=== PATIENT | female | born 1995 | race Caucasian/White ===

== ENCOUNTER → 2016-10-23 | Outpatient (CLI) | payer OTHER ==
[2016-10-23 10:13] LABS: HEMATOCRIT 34.9 % (37-47); MEAN CELL VOLUME 63.6 fL (80-100); MEAN CORPUSCULAR HEMOGLOBIN 19.9 pg (25-34); MEAN CORPUSCULAR HGB CONC 31.2 g/dl (32-36); MEAN PLATELET VOLUME 9.8 fL (7.4-10.4); PLATELET COUNT 461 K/uL (130-400); RED BLOOD COUNT 5.49 M/uL (4.2-5.4); WHITE BLOOD COUNT 11.09 K/uL (4.8-10.8)
[2016-10-23 10:52] LABS: CALCULATED INSULIN SENSITIVITY 0.315; GLUCOSE LOG 1.9823; GLUCOSE,FASTING 96 mg/dl; INSULIN FASTING 15.5 mU/L (3-25); INSULIN LOG 1.1903; PROLACTIN 25.97 ng/mL; THYROID STIMULATING HORMONE 2.17 uIu/ml (0.300-4.500)
[2016-10-23 11:02] LABS: RUBELLA SCREEN IgG (AT CCH) IMMUNE (IMMUNE)
[2016-10-26 15:42] LABS: HCT 35.7 % (35.0-45.0); HEMOGLOBIN A2 5.7 % (1.8-3.5); HEMOGLOBIN F 0.6 % (<2.0); HGB 10.9 g/dL (11.7-15.5); MCH 20.2 pg (27.0-33.0); MCV 66.2 FL (80.0-100.0); RBC 5.39 Mill/uL (3.80-5.10); RDW 17.5 % (11.0-15.0); TESTOSTERONE,TOTAL 17 ng/dL (2-45)
== END | disposition home or self-care (01) ==
LOC: C.LAB 08:51
PROVIDERS: ATTEND Obstetrics & Gynecology
DX: D56.3 Thalassemia minor (principal); Z31.41 Encounter for fertility testing

== ENCOUNTER → 2016-11-19 | Outpatient (CLI) | payer OTHER ==
[2016-11-19 12:36] LABS: BLOOD UREA NITROGEN 11 mg/dl (7-18); BUN/CREATININE RATIO 14.7 (10-20); CALCIUM 8.9 mg/dl (8.5-10.1); CARBON DIOXIDE 25 mmol/L (21-32); CHLORIDE 105 mmol/L (98-107); CHOLESTEROL 114 mg/dl (0-200); CREATININE 0.74 mg/dl (0.60-1.20); GLUCOSE 92 mg/dl (70-99); SODIUM 138 mmol/L (136-145)
[2016-11-19 12:39] LABS: CHOLESTEROL/HDL RATIO 2.1; HDL CHOLESTEROL 54 mg/dl; LDL CHOLESTEROL CALCULATED 55 mg/dl; TRIGLYCERIDES 24 mg/dl (0-150); VERY LOW DENSITY LIPOPROT CALC 5 mg/dl
== END | disposition home or self-care (01) ==
LOC: C.LABBC 10:35
PROVIDERS: ATTEND Nurse Practitioner
DX: Z13.220 Encounter for screening for lipoid disorders (principal); Z13.1 Encounter for screening for diabetes mellitus

== ENCOUNTER → 2016-12-04 | Outpatient (CLI) | payer OTHER | END | disposition home or self-care (01) | LOC: C.LAB1850 10:21 | PROVIDERS: ATTEND Obstetrics & Gynecology | DX: O09.00 Supervision of pregnancy with history of infertility, unspecified trimester (principal) ==

== ENCOUNTER → 2016-12-07 | Outpatient (CLI) | payer OTHER | END | disposition home or self-care (01) | LOC: C.LAB 05:01 | PROVIDERS: ATTEND Obstetrics & Gynecology | DX: O20.0 Threatened abortion (principal) ==

== ENCOUNTER → 2016-12-14 | Outpatient (CLI) | payer OTHER | END | disposition home or self-care (01) | LOC: C.LAB 11:27 | PROVIDERS: ATTEND Obstetrics & Gynecology | DX: O02.1 Missed abortion (principal) ==

== ENCOUNTER → 2017-02-19 | Outpatient (CLI) | payer OTHER | END | disposition home or self-care (01) | LOC: C.LAB 10:41 | PROVIDERS: ATTEND Obstetrics & Gynecology | DX: O20.0 Threatened abortion (principal); Z3A.00 Weeks of gestation of pregnancy not specified ==

== ENCOUNTER → 2017-02-21 | Outpatient (CLI) | payer OTHER | END | disposition home or self-care (01) | LOC: C.LAB 23:55 | PROVIDERS: ATTEND Obstetrics & Gynecology | DX: O20.0 Threatened abortion (principal); Z3A.00 Weeks of gestation of pregnancy not specified ==

== ENCOUNTER → 2017-02-25 | Outpatient (CLI) | payer OTHER | END | disposition home or self-care (01) | LOC: C.LAB 23:58 | PROVIDERS: ATTEND Obstetrics & Gynecology | DX: O20.0 Threatened abortion (principal) ==

== ENCOUNTER → 2017-02-28 | Outpatient (CLI) | payer OTHER | END | disposition home or self-care (01) | LOC: C.LAB 10:04 | PROVIDERS: ATTEND Obstetrics & Gynecology | DX: O20.0 Threatened abortion (principal) ==

== ENCOUNTER → 2017-03-15 | Outpatient (CLI) | payer OTHER ==
[2017-03-15 16:07] LABS: URINE APPEARANCE CLEAR (CLEAR); URINE BILIRUBIN NEG (NEG); URINE COLOR YELLOW; URINE EPITHELIAL CELL AUTO >30 /lpf (0-5); URINE NITRITE NEG (NEG); URINE SPECIFIC GRAVITY 1.021 (1.000-1.030); UROBILINOGEN NEG (NEG)
[2017-03-15 16:10] LABS: MANUAL MICROSCOPIC REQUIRED? NO; REVIEW REQ? YES
[2017-03-15 16:23] LABS: URINE MUCUS PRESENT (NONE PRSENT)
== END | disposition home or self-care (01) ==
LOC: C.LABSPEC 15:13
PROVIDERS: ATTEND Obstetrics & Gynecology
DX: O09.00 Supervision of pregnancy with history of infertility, unspecified trimester (principal); Z3A.00 Weeks of gestation of pregnancy not specified

== ENCOUNTER → 2017-03-27 | Outpatient (CLI) | payer OTHER ==
[~2017-03-27] MED LIST: FERR1TAB23; PRENTAB26 PO
[2017-03-27 10:07] LABS: BASO % 0.2 %; BASO ABS # 0.03 K/uL (0-0.2); EOS % 1.1 %; EOS ABS # 0.16 K/uL (0-0.5); HEMATOCRIT 32.9 % (37-47); HEMOGLOBIN 10.6 g/dL (12.0-16.0); IG# 0.04 K/uL (0.00-0.02); LYMPH % 15.1 %; LYMPH ABS # 2.17 K/uL (1.2-3.4); MEAN CELL VOLUME 63.1 fL (80-100); MEAN CORPUSCULAR HEMOGLOBIN 20.3 pg (25-34); MEAN CORPUSCULAR HGB CONC 32.2 g/dl (32-36); MEAN PLATELET VOLUME 10.7 fL (7.4-10.4); MONO ABS # 0.86 K/uL (0.11-0.59); NEUT % 77.3 %; NEUT ABS # 11.07 K/uL (1.4-6.5); PLATELET COUNT 430 K/uL (130-400); RED CELL DISTRIBUTION WIDTH CV 17.2 % (11.5-14.5); RED CELL DISTRIBUTION WIDTH SD 38.8 fL (36.4-46.3); WHITE BLOOD COUNT 14.33 K/uL (4.8-10.8)
== END | disposition home or self-care (01) ==
LOC: C.LAB1850 09:18
PROVIDERS: ATTEND Obstetrics & Gynecology
DX: Z34.91 Encounter for supervision of normal pregnancy, unspecified, first trimester (principal)

== ENCOUNTER → 2017-04-16 | Outpatient (CLI) | payer OTHER | END | disposition home or self-care (01) | LOC: C.LABSPEC 14:14 | PROVIDERS: ATTEND Obstetrics & Gynecology | DX: Z34.91 Encounter for supervision of normal pregnancy, unspecified, first trimester (principal) ==

== ENCOUNTER → 2017-05-09 | Outpatient (CLI) | payer OTHER | END | disposition home or self-care (01) | LOC: C.LAB1850 09:41 | PROVIDERS: ATTEND Obstetrics & Gynecology | DX: Z34.92 Encounter for supervision of normal pregnancy, unspecified, second trimester (principal) ==

== ENCOUNTER → 2017-05-20 | Outpatient (CLI) | payer OTHER | END | disposition home or self-care (01) | LOC: C.LAB1850 08:04 | PROVIDERS: ATTEND Obstetrics & Gynecology | DX: O28.1 Abnormal biochemical finding on antenatal screening of mother (principal) ==

== ENCOUNTER → 2017-07-27 | Outpatient (CLI) | payer OTHER | END | disposition home or self-care (01) | LOC: C.LAB1850 08:39 | PROVIDERS: ATTEND Obstetrics & Gynecology | DX: O28.1 Abnormal biochemical finding on antenatal screening of mother (principal) ==

== ENCOUNTER → 2017-08-01 | Outpatient (CLI) | payer OTHER ==
[2017-08-01 16:52] LABS: HEMATOCRIT 30.8 % (37-47); HEMOGLOBIN 9.8 g/dL (12.0-16.0); MEAN CELL VOLUME 66.1 fL (80-100); MEAN CORPUSCULAR HGB CONC 31.8 g/dl (32-36); PLATELET COUNT 346 K/uL (130-400); RED CELL DISTRIBUTION WIDTH CV 16.6 % (11.5-14.5); RED CELL DISTRIBUTION WIDTH SD 39.4 fL (36.4-46.3); WHITE BLOOD COUNT 15.02 K/uL (4.8-10.8)
== END | disposition home or self-care (01) ==
LOC: C.LAB1850 15:36
PROVIDERS: ATTEND Obstetrics & Gynecology
DX: O09.02 Supervision of pregnancy with history of infertility, second trimester (principal); D56.3 Thalassemia minor

== ENCOUNTER 2019-08-07 07:05 | Inpatient (IN) ==
[2019-08-07] MEDS ORDERED: PENICILLIN G POTASSIUM 3 MU in DEXTROSE 5% 100 ML IV PRN (08:18)
[2019-08-07] MEDS ORDERED: OXYTOCIN 30 UNITS/500 ML BAG IV PRN ×3 (08:18→13:27)
[2019-08-07] MEDS: LACTATED RINGER'S 1,000 ML IV PRN ×2 (08:20→11:46)
[2019-08-07] MEDS ORDERED: PENICILLIN G POTASSIUM 6 MU in DEXTROSE 5% 250 ML IV STA (08:21)
--- NOTE | 2019-08-07 08:23 | History & Physical Report ---
Date of Service August 07, 2019 Assessment & Plan (1) : Admit to L&D for spontaneous labor. PCN for GBS. History of Present Illness Chief Complaint: labor Primary Care Provider: NO PCP 24yo @ 38 6/7, contractions all night. complicated by: Prior delivery with mild shoulder dystocia, plan 39wk induction if gets that far, scheduled for 08/10 GBS POS Obesity complicating - growth scan at 32 weeks GA, done at 36 wks aga efw 82% Beta thalassemia trait Pap ASCUS, HPV neg f/u 1 year Allergies Allergy/AdvReac Type Severity Reaction Status Date / Time No Known Drug Allergies Allergy Verified 08/05/19 10:01 Home Medications Home Medications Medication Instructions Recorded Confirmed Type 21-iron fu-folic acid PO 12/24/18 08/05/19 History ferrous sulfate PO 06/23/19 08/05/19 History Patient History Medical History Miscarriage Varicella vaccine Surgical History S/P dilatation and curettage Family History Sister Beta thalassemia trait Father Beta thalassemia trait Hypertension Brother Beta thalassemia trait Grandfather (Paternal) Beta thalassemia trait Mother Diabetes Social History Preferred Language: Swazi Communication Ability: Effective Beliefs That Will Affect Care: None marital status: marital status details: Beni Stevens (28) [phone] Current Living Situation: Family Current Living Situation Comment: 2 dogs current occupational status: employed 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 [employer] Other Information That Helps Us Care for You: No Feels Safe at Home: Yes Safety Concerns: Feels Safe At This Time Smoking Status: Never smoker Hx Alcohol Use: No Hx Substance Use: No Review of Systems All systems reviewed & are unremarkable except as noted in HPI & below Physical Exam Physical Exam: FHT Cat 1 Erskine Q 2-5 SVE 5/100/bulging membranes, head -2 Constitutional: WD/WN, vitals as above Respiratory: normal respiratory effort, lungs clear to auscultation no respiratory distress Cardiovascular: Rate/Rhythm: regular rate and regular rhythm Gastrointestinal (Abdomen): Inspection/Auscultation: abdomen normal to inspection Percussion/Palpation: abdomen soft; abdomen nontender Gravid. No s/s chorio or abruption. Skin: no rashes, warm and dry Psychiatric: A+Ox3, euthymic affect Results & Data Vital Signs (Past 12 Hours) Vital Signs Temp Pulse Resp BP 08/07/19 07:28 106 H 124/79 08/07/19 07:16 37.0 C 115 H 20 140/98 08/07/19 07:15 37.0 C 106 H 20 124/79 Coding Level of Care Code None Diagnoses Z34.90
[2019-08-07 08:39] LABS: Hematocrit (blood only) 30.7 % (37-47); Hemoglobin 9.7 g/dL (12.0-16.0); Mean Corpuscular Hemoglobin 21.1 pg (25-34); Mean Corpuscular Volume 66.7 fL (80-100); Mean Platelet Volume 10.3 fL (7.4-10.4); Nucleated RBC # (auto) 0.02 K/uL (0-0); Nucleated RBC % (auto) 0.2 %; Platelet Count 295 K/uL (130-400); RDW Coefficient of Variation 16.8 % (11.5-14.5); White Blood Count 11.97 K/uL (4.8-10.8)
[2019-08-07] MEDS ORDERED: ePHEDrine sulfate 50 MG/ML AMP ONE (08:44)
[2019-08-07 08:45] LABS: Mean Corpuscular Hgb Conc 31.6 g/dL (32-36)
[2019-08-07] MEDS ORDERED: fentaNYL citrate 100 MCG/2 ML VIAL ONE (08:45)
[2019-08-07] MEDS ORDERED: fentaNYL 2MCG/ML ROPIV 1.25MG/ML 100 ML BAG EPI ONE (08:45)
[2019-08-07] MEDS ORDERED: BUPIVACAINE 0.25% 30 ML VIAL ONE (08:45)
[2019-08-07] MEDS ORDERED: NALOXONE HCL 0.4 MG/1 ML VIAL/CARP IV PRN (08:54)
[2019-08-07] MEDS ORDERED: DiphenhydrAMINE HCL 50 MG/ML VIAL IV PRN (08:54)
[2019-08-07] MEDS ORDERED: fentaNYL 2MCG/ML ROPIV 1.25MG/ML 100 ML BAG EPI PRN (08:54)
[2019-08-07] MEDS ORDERED: NALBUPHINE HCL INJ 10 MG/ML AMP IV PRN (08:54)
[2019-08-07] MEDS ORDERED: NALOXONE HCL 1 MG in SODIUM CHLORIDE 0.9% 1000ML 1,000 ML IV PRN (08:54)
[2019-08-07] MEDS ORDERED: ePHEDrine sulfate 50 MG/ML AMP IV PRN (08:54)
[2019-08-07] MEDS ORDERED: ONDANSETRON INJ 2 MG/ML 2 ML VIAL IV PRN (08:54)
--- NOTE | 2019-08-07 08:56 | Anesthesiology Consultation ---
Date of Service August 07, 2019 Assessment & Plan (1) Encounter for pre-operative examination: Chart Review Chart Review: Patient NOT seen in Pre Admission Testing and Acceptable Risk for Labor Epidural Consults Requested none History Height/Weight Height: 5 ft 7 in Weight: 109.769 kg Allergies Allergy/AdvReac Type Severity Reaction Status Date / Time No Known Drug Allergies Allergy none Verified 08/07/19 08:31 Medications Home Medications Medication Instructions Recorded Confirmed Last Taken ferrous sulfate [Iron (ferrous 325 mg PO DAILY 08/07/19 08/07/19 08/06/19 08:00 sulfate)] vit-iron fum-folic ac 1 tab PO DAILY 08/07/19 08/07/19 08/06/19 08:00 [ Vitamin] Active Medications Generic Name Dose Route Start Last Admin Trade Name Freq PRN Reason Stop Dose Admin Lactated Ringer's 1,000 mls @ 125 mls/hr 08/07/19 08:18 08/07/19 08:37 Lr IV 08/09/19 08:17 999 mls/hr .Q8H PRN Infusion L&D Protocol Protocol Past Medical History Medical History Miscarriage Varicella vaccine Exercise / Class Metabolic Activity II 4-5 Yardwork/Stairs/Walk up hill Past Family History Family History Sister Beta thalassemia trait Father Beta thalassemia trait Hypertension Brother Beta thalassemia trait Grandfather (Paternal) Beta thalassemia trait Mother Diabetes Past Surgical History Surgical History S/P dilatation and curettage Past Anesthesia History No Hx of Anesthesia Complications and No Family Hx of Anesthesia Complications History of PONV No Hx of PONV and No Hx of Motion Sickness Social History Smoking Status: Never smoker Do You Dip or Chew Tobacco: No Hx Alcohol Use: No Hx Substance Use: No substance use type: does not use Physical Exam Vital Signs Last Vital Signs Temp 37.0 C 08/07/19 07:16 Pulse 89 08/07/19 09:12 Resp 20 08/07/19 07:16 BP 124/79 08/07/19 07:28 Pulse Ox 100 08/07/19 09:12 Testing Laboratory Results 08/07/19 08:25
--- NOTE | 2019-08-07 11:17 | Labor Progress Brief Note ---
Date of Service August 07, 2019 Subjective comfortable with epidural Assessment & Plan (1) Supervision of normal intrauterine in multigravida: - tracing Cat II - first dose of PCN in - pt with no cervical change for three hours after admission - AROM clear - pitocin augmentation for arrested dilation Physical Exam Gastrointestinal (Abdomen): Gravid, vtx, EFW 8 lbs Genitourinary: Cervix: 6/100/-2 Results & Data Vital Signs (Past 12 Hours) Vital Signs Temp Pulse Resp BP Pulse Ox 08/07/19 11:12 70 100 08/07/19 11:10 71 92 08/07/19 11:07 75 100 08/07/19 11:03 66 113/69 08/07/19 11:02 74 100 08/07/19 10:57 64 100 08/07/19 10:56 69 91 08/07/19 10:52 66 98 08/07/19 10:50 68 91 08/07/19 10:47 73 101/55 L 100 08/07/19 10:43 70 90 08/07/19 10:42 67 101/62 100 08/07/19 10:38 70 114/66 08/07/19 10:37 67 96 08/07/19 10:34 65 92 08/07/19 10:32 65 100 08/07/19 10:31 60 114/74 08/07/19 10:27 58 L 120/76 100 08/07/19 10:22 63 115/69 100 08/07/19 10:17 70 100 08/07/19 10:16 72 113/75 08/07/19 10:12 66 119/82 100 08/07/19 10:11 61 117/76 08/07/19 10:08 65 111/67 08/07/19 10:07 66 100 08/07/19 10:02 75 100 08/07/19 10:01 68 115/77 08/07/19 09:57 66 114/71 100 08/07/19 09:52 76 112/65 100 08/07/19 09:47 75 100 08/07/19 09:46 78 120/72 08/07/19 09:42 73 115/69 100 08/07/19 09:37 73 100 08/07/19 09:36 76 123/84 08/07/19 09:32 80 100 08/07/19 09:29 75 119/79 08/07/19 09:27 80 113/71 100 08/07/19 09:25 82 115/76 08/07/19 09:23 76 116/74 08/07/19 09:22 79 100 08/07/19 09:21 85 109/72 08/07/19 09:19 78 123/79 08/07/19 09:17 77 127/71 100 08/07/19 09:15 75 125/70 08/07/19 09:12 89 100 08/07/19 09:07 88 100 08/07/19 09:02 96 H 100 08/07/19 07:28 106 H 124/79 08/07/19 07:16 98.6 F 115 H 20 140/98 08/07/19 07:15 98.6 F 106 H 20 124/79 Coding Level of Care Code None Diagnoses Supervision of normal intrauterine in multigravida Z34.80
--- NOTE | 2019-08-07 12:42 | Labor Progress Brief Note ---
Date of Service August 07, 2019 Subjective Reason For Note: Requested By drapery operator & Plan (1) Supervision of normal intrauterine in multigravida: - tracing Cat II - begin 2nd stage Physical Exam Genitourinary: Cervix: Complete/(+)1 Results & Data Vital Signs (Past 12 Hours) Vital Signs Temp Pulse Resp BP Pulse Ox 08/07/19 12:39 82 91 08/07/19 12:37 79 100 08/07/19 12:32 78 100 08/07/19 12:31 74 133/83 08/07/19 12:27 77 100 08/07/19 12:26 76 94 08/07/19 12:22 64 100 08/07/19 12:18 98.1 F 63 20 121/76 08/07/19 12:17 63 100 08/07/19 12:12 75 100 08/07/19 12:07 79 100 08/07/19 12:04 62 113/71 08/07/19 12:02 62 100 08/07/19 11:57 62 100 08/07/19 11:52 66 100 08/07/19 11:47 81 127/92 100 08/07/19 11:42 74 100 08/07/19 11:37 64 99 08/07/19 11:32 60 118/73 100 08/07/19 11:28 18 08/07/19 11:27 64 98 08/07/19 11:22 65 100 08/07/19 11:17 65 117/76 97 08/07/19 11:12 70 100 08/07/19 11:10 71 92 08/07/19 11:07 75 100 08/07/19 11:03 66 113/69 08/07/19 11:02 74 100 08/07/19 10:57 64 100 08/07/19 10:56 69 91 08/07/19 10:52 66 98 08/07/19 10:50 68 91 08/07/19 10:47 73 101/55 L 100 08/07/19 10:43 70 90 08/07/19 10:42 67 101/62 100 08/07/19 10:38 70 114/66 08/07/19 10:37 67 96 08/07/19 10:34 65 92 08/07/19 10:32 65 100 08/07/19 10:31 60 16 114/74 05/20 10:27 58 L 120/76 100 08/07/19 10:22 63 115/69 100 08/07/19 10:17 70 100 08/07/19 10:16 72 113/75 08/07/19 10:12 66 119/82 100 08/07/19 10:11 61 117/76 08/07/19 10:08 65 111/67 08/07/19 10:07 66 100 08/07/19 10:02 75 100 08/07/19 10:01 68 115/77 08/07/19 09:57 66 114/71 100 08/07/19 09:52 76 112/65 100 08/07/19 09:47 75 100 08/07/19 09:46 78 16 120/72 08/07/19 09:42 73 115/69 100 08/07/19 09:37 73 100 08/07/19 09:36 76 123/84 08/07/19 09:32 80 100 08/07/19 09:29 75 119/79 08/07/19 09:27 80 113/71 100 08/07/19 09:25 82 115/76 08/07/19 09:23 76 116/74 08/07/19 09:22 79 100 08/07/19 09:21 85 109/72 08/07/19 09:19 78 123/79 08/07/19 09:17 77 127/71 100 08/07/19 09:15 75 125/70 08/07/19 09:12 89 100 08/07/19 09:07 88 100 08/07/19 09:02 96 H 100 08/07/19 07:28 106 H 124/79 08/07/19 07:16 98.6 F 115 H 20 140/98 08/07/19 07:15 98.6 F 106 H 20 124/79 Coding Level of Care Code None Diagnoses Supervision of normal intrauterine in multigravida Z34.80
[2019-08-07] MEDS ORDERED: DIPHTHERIA/TETANUS/PERTUSSIS 0.5 ML SYR/VIAL IM ONE (13:27)
[2019-08-07] MEDS ORDERED: ACETAMINOPHEN 325 MG TAB PO PRN (13:27)
[2019-08-07] MEDS ORDERED: SUPERCREAM 0.870% 15 GM JAR EXT PRN (13:27)
[2019-08-07] MEDS ORDERED: HYDROCORTISONE ACETATE 25 MG SUPP PR PRN (13:27)
[2019-08-07] MEDS ORDERED: ACETAMINOPHEN W/CODEINE #3 1 TAB PO PRN (13:27)
[2019-08-07] MEDS ORDERED: BENZOCAINE 20% AER SPR 82.5 GM CAN EXT PRN (13:27)
--- NOTE | 2019-08-07 13:29 | Delivery Summary ---
Vaginal Delivery Summary Date of Service August 07, 2019 Vaginal Delivery Summary Findings: Viable male infant with Apgars of 8 and 9. Baby delivered over a midline second-degree laceration. Cord gases and cord blood samples obtained. Placenta delivered spontaneously. Laceration repaired with 4-0 Vicryl. Estimated blood loss 300 cc. Labor note: The patient is a 24-year-old 5 para 1 with an EDC of 14 August by first trimester ultrasound at 38+ weeks gestational age who was admitted in active labor. Patient states her contractions began prior to admission and increased in intensity, denied rupture of membranes or vaginal bleeding. The patient has the diagnosis of beta thalassemia trait. She has been anemic for the . Blood type show blood type of A+, antibody negative, rubella immune, hepatitis B negative, she had a negative cell free DNA screen, she had normal 1 hour Glucola x2, she had a positive third trimester beta strep culture. Upon admission the patient was 5 to 6 cm dilated 100% effaced 0 station in active labor. Tracing was category 2. Because of the positive GBS the patient received penicillin 6,000,000 unit loading dose and 3,000,000 units every 4 hours was planned. Patient was uncomfortable anesthesia was consulted and an epidural was placed. Delivering physician assumed care for the patient at this point. Repeat examination 3 hours after admission had showed no cervical change. Tracing again was category 2. Patient had received 1 dose of penicillin. Because there had been no cervical change Pitocin augmentation was initiated with artificial rupture of membranes of clear fluid. Patient progressed to full dilatation and began her second stage. She pushed for approximately 15 minutes delivering the viable male infant. Cord was clamped and cut. Cord gases and cord blood samples were obtained. Placenta was delivered spontaneously. Midline second-degree laceration was repaired with 4-0 Vicryl. Estimated blood loss was 300 cc. Sponge and needle count was correct.
[2019-08-07 14:17] LABS: Base Excess Cord Arterial Bld -8.8 mEq/L (-9-1.8); CO2 Cord Arterial Blood 64 mmHg (39.1-73.5); HCO3 Cord Arterial Blood 21 mmol/L (19.7-28.5); PO2 Cord Arterial Blood 46 mmHg (4.1-31.7); pH Cord Arterial Blood 7.14 (7.1-7.38)
[2019-08-07 14:22] LABS: Base Excess Cord Venous Blood -7.7 mEq/L (-7.7-1.9); Cord Venous Blood HCO3 19 mmol/L (18.4-26.8); Cord Venous Blood PCO2 45 mmHg (30.4-57.2); Cord Venous Blood PO2 46 mmHg (14.1-43.3); Cord Venous Blood pH 7.25 (7.20-7.44)
--- NOTE | 2019-08-07 15:12 | Anesthesia Procedure Note ---
Date of Service August 07, 2019 Anesthesia Post Epidural Note Vital Signs Vital Signs: Temp Pulse Resp BP Pulse Ox 36.7 C 75 20 124/72 100 08/07/19 12:18 08/07/19 15:02 08/07/19 12:18 08/07/19 15:02 08/07/19 13:12 Notes Mental Status: alert / awake / arousable and participated in evaluation Patient Amnestic to Procedure: No Nausea / Vomiting: adequately controlled Pain: adequately controlled Airway Patency, RR, SpO2: stable & adequate BP & HR: stable & adequate Hydration State: stable & adequate Neuraxial Anesthesia: was administered and sensory block is resolving Anesthetic Complications: no major complications apparent and Pt Satisfied with anesthetic care Epidural: Removed without complications and With tip intact
[2019-08-07] MEDS: IBUPROFEN 600 MG TAB PO PRN ×2 (16:27→20:10)
[2019-08-07] MEDS: DOCUSATE SODIUM 100 MG CAP PO SCH (21:03)
[2019-08-08] MEDS: IBUPROFEN 600 MG TAB PO PRN ×4 (03:20→21:07)
[2019-08-08] MEDS: DOCUSATE SODIUM 100 MG CAP PO SCH ×2 (07:26→21:04)
[2019-08-08] MEDS: PRENATAL VITAMIN 1 TAB PO SCH (07:26)
--- NOTE | 2019-08-08 07:35 | Obstetrical Progress Note ---
Date of Service August 08, 2019 Assessment & Plan (1) Supervision of normal intrauterine in multigravida: - routine care - doing well Subjective Ambulation: ambulating normally Voiding: no voiding problems Physical Exam Constitutional WD/WN, vitals as above Gastrointestinal (Abdomen) Fundus firm below umbilicus Musculoskeletal No deep calf tenderness Results & Data Vital Signs (Past 12 Hours) Vital Signs Temp Pulse Resp BP 08/08/19 05:10 97.7 F 65 8 L 105/70 08/07/19 23:55 98.1 F 72 18 110/74 08/07/19 20:20 97.7 F 64 16 113/72
[2019-08-08] MEDS ORDERED: bisacodyL 5 MG TABEC PO SCH (20:00)
[2019-08-09 06:51] LABS: Hematocrit (blood only) 30.2 % (37-47); Hemoglobin 9.3 g/dL (12.0-16.0)
--- NOTE | 2019-08-09 08:02 | Obstetrical Progress Note ---
Date of Service August 09, 2019 Assessment & Plan (1) Normal delivery: stable, d/c home, instructions reviewed. rh pos, ri, . f/u 6 wk pp check. Day #:: 2 Subjective Ambulation: ambulating normally Voiding: no voiding problems Diet Tolerance:: regular diet Lochia:: Small Feeding Type:: breast feeding no pain issues. doing well. Physical Exam Constitutional WD/WN, vitals as above Respiratory normal respiratory effort, lungs clear to auscultation Cardiovascular Rate/Rhythm: regular rate and regular rhythm Gastrointestinal (Abdomen) Inspection/Auscultation: abdomen normal to inspection Percussion/Palpation: abdomen soft fundus firm 1 cm below umbilicus Musculoskeletal nt calves no edema Neurologic grossly normal Psychiatric A+Ox3, euthymic affect Results & Data Vital Signs (Past 12 Hours) Vital Signs Temp Pulse Resp BP 08/09/19 07:56 97.7 F 96 H 20 127/85 08/09/19 00:05 98.1 F 81 16 124/80
[2019-08-09] MEDS: DOCUSATE SODIUM 100 MG CAP PO SCH (08:32)
[2019-08-09] MEDS: PRENATAL VITAMIN 1 TAB PO SCH (08:32)
[2019-08-09] MEDS: IBUPROFEN 600 MG TAB PO PRN (08:33)
== END 2019-08-09 14:05 | disposition home or self-care (01) | DRG 807 ==
LOC: OPB 07:05 → 4S1 07:05 → 4S2 16:42

== ENCOUNTER 2021-07-28 06:44 | Inpatient (IN) ==
[2021-07-28] MEDS ORDERED: LACTATED RINGER'S 1,000 ML IV PRN (07:06)
[2021-07-28] MEDS ORDERED: OXYTOCIN 30 UNITS/500 ML BAG IV PRN (07:06)
[2021-07-28] MEDS ORDERED: PENICILLIN G POTASSIUM 6 MU in DEXTROSE 5% 250 ML IV STA (07:06)
[2021-07-28] MEDS ORDERED: ePHEDrine sulfate 50 MG/ML AMP IV PRN (07:35)
[2021-07-28] MEDS ORDERED: NALOXONE HCL 1 MG in SODIUM CHLORIDE 0.9% 1000ML 1,000 ML IV PRN (07:35)
[2021-07-28] MEDS ORDERED: fentaNYL 2MCG/ML ROPIVACAINE 1.25MG/ML 100 ML BAG EPI PRN (07:35)
[2021-07-28] MEDS ORDERED: NALOXONE HCL 0.4 MG/1 ML VIAL/CARP IV PRN (07:35)
[2021-07-28] MEDS ORDERED: NALBUPHINE HCL INJ 10 MG/ML AMP IV PRN (07:35)
[2021-07-28] MEDS ORDERED: diphenhydrAMINE 50 MG/ML VIAL IV PRN (07:35)
--- NOTE | 2021-07-28 07:35 | Anesthesiology Consultation ---
Date of Service July 28, 2021 Assessment & Plan (1) Encounter for pre-operative examination: Chart Review Chart Review: Acceptable Risk for Surgery and Patient NOT seen in Pre Admission Testing Consults Requested none History Height/Weight Height: 5 ft 7 in Weight: 100.698 kg Allergies Allergy/AdvReac Type Severity Reaction Status Date / Time No Known Drug Allergies Allergy none Verified 07/27/21 12:11 Medications Home Medications Medication Instructions Recorded Confirmed Last Taken prenat.vits,geno,nwp-mley-tvxmv 1 tab PO DAILY 12/21/20 07/28/21 07/25/21 Past Medical History Medical History Encounter for anatomic survey Encounter for IUD insertion Encounter for visit Encounter for pre-operative examination IUD (intrauterine device) in place Mirena 01/2020 Miscarriage Normal delivery Obesity affecting , antepartum Oral contraceptive prescribed Supervision of normal intrauterine in multigravida Varicella vaccine Past Family History Family History Sister Beta thalassemia trait Father Beta thalassemia trait Hypertension Brother Beta thalassemia trait Grandfather (Paternal) Beta thalassemia trait Mother Diabetes Hypertension Grandmother (Maternal) Diabetes Denies family history of Ovarian cancer Prostate cancer Myocardial infarction Breast cancer Colorectal cancer Past Surgical History Surgical History S/P dilatation and curettage S/P tonsillectomy and adenoidectomy Social History Smoking Status: Never smoker Hx Alcohol Use: No Hx Substance Use: No substance use type: does not use Physical Exam Vital Signs Last Vital Signs Pulse 89 07/28/21 07:23 Resp 22 07/28/21 07:23 BP 139/87 07/28/21 07:23
[2021-07-28] MEDS ORDERED: SODIUM CHLORIDE 0.9% INJ 10 ML VIAL ONE (07:37)
[2021-07-28] MEDS ORDERED: BUPIVACAINE 0.25% 30 ML VIAL ONE (07:37)
[2021-07-28] MEDS ORDERED: ePHEDrine sulfate 50 MG/ML AMP ONE (07:37)
[2021-07-28] MEDS ORDERED: fentaNYL citrate 100 MCG/2 ML VIAL ONE (07:37)
[2021-07-28 07:38] LABS: Hematocrit (blood only) 29.7 % (37-47); Hemoglobin 9.4 g/dL (12.0-16.0); Mean Corpuscular Hemoglobin 20.7 pg (25-34); Mean Corpuscular Hgb Conc 31.6 g/dL (32-36); Mean Corpuscular Volume 65.4 fL (80-100); Mean Platelet Volume 9.9 fL (7.4-10.4); Platelet Count 330 K/uL (130-400); RDW Coefficient of Variation 16.4 % (11.5-14.5); RDW Standard Deviation 38.3 fL (36.4-46.3); Red Blood Count 4.54 M/uL (4.2-5.4); White Blood Count 13.96 K/uL (4.8-10.8)
[2021-07-28] MEDS ORDERED: fentaNYL 2MCG/ML ROPIVACAINE 1.25MG/ML 100 ML BAG EPI ONE (07:38)
--- NOTE | 2021-07-28 08:04 | History & Physical Report ---
Date of Service July 28, 2021 Assessment & Plan (1) Group beta Strep positive: Plan: 26-year-old at 38 weeks 2 days gestational age. Presents in active labor. 1. Fetus: Cat 1 2. Labor: Active 3. GBS positve: PCN 4. Vitals WNL (2) Supervision of normal intrauterine in multigravida: (3) Beta thalassemia trait: History of Present Illness Primary Care Provider: TONY Rivera 26-year-old at 38 weeks 2 days gestational age presents for labor evaluation. Patient reports contractions increasing frequency and intensity overnight. Patient denies leakage of fluid or vaginal bleeding reporting good movement. Patient has history 2 prior vaginal deliveries without complication. complicated by beta thalassemia trait OB Labs: Blood Type A Positive 01/24/21 Antibody Screen NEGATIVE 01/24/21 Hemoglobin 9.5 g/dL (12.0-16.0) L 05/26/21 Hematocrit 30.3 % (37-47) L 05/26/21 Mean Corpuscular Volume 66.1 fL (80-100) L 01/24/21 Platelet Count 450 K/uL (130-400) H 01/24/21 Rubella IgG Antibody Immune (Immune) 01/24/21 Rapid Plasma Reagin Nonreactive (Nonreactive) 01/24/21 Hepatitis B Surface Antigen Prelim Pos (Neg) A 01/24/21 HIV (1&2) Ab and P24 Ag, 4th Gener Neg (Neg) 01/24/21 Glucose 1 Hour 50 gm Load 155 mg/dl (70-130) H 05/26/21 OB Optional Labs: Chlamydia trachomatis RNA NOT DETECTED (NOT DETECTED) 12/26/20 Neisseria gonorrhoeae RNA NOT DETECTED (NOT DETECTED) 12/26/20 Thyroid Stimulating Hormone (TSH) 1.290 uIu/ml (0.300-4.500) 10/25/20 Labs Reviewed: declines MSAFP declined CF/SMA (-)cfDNA Allergies Allergy/AdvReac Type Severity Reaction Status Date / Time No Known Drug Allergies Allergy none Verified 07/27/21 12:11 Home Medications Medication Instructions Recorded Confirmed Type prenat.vits,geno,ghp-iton-bbcsm 1 tab PO DAILY 12/21/20 07/28/21 History Patient History Medical History Encounter for anatomic survey Encounter for IUD insertion Encounter for visit Encounter for pre-operative examination IUD (intrauterine device) in place Mirena 01/2020 Miscarriage Normal delivery Obesity affecting , antepartum Oral contraceptive prescribed Supervision of normal intrauterine in multigravida Varicella vaccine Surgical History S/P dilatation and curettage S/P tonsillectomy and adenoidectomy Family History Sister Beta thalassemia trait Father Beta thalassemia trait Hypertension Brother Beta thalassemia trait Grandfather (Paternal) Beta thalassemia trait Mother Diabetes Hypertension Grandmother (Maternal) Diabetes Denies family history of Ovarian cancer Prostate cancer Myocardial infarction Breast cancer Colorectal cancer Social History (System 02/13/21 @ 09:00 by Aliya Ventura) Smoking Status: Never smoker Second Hand Exposure: No; Hx Alcohol Use: No Hx Substance Use: No Preferred Language: Tajik Communication Ability: Effective 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 [employer] Other Information That Helps Us Care for You: No Feels Safe at Home: Yes Safety Concerns: Feels Safe At This Time Dental Care, Regularly: Yes Physical Activity Frequency: Does not Exercise Seatbelt Use: always Sunscreen Use: Yes (sometimes) Assistive Devices: None Physical Exam Genitourinary: OB Exam Abdomen: + vertex Manual OB Exam: + cervical dilation 6 cm, + cervical effacement 90% and + station 0 OB Exam Monitor Tracing: + external FHT monitor used, + external uterine monitor used, + category I and + normal FHT variability; no early decelerations present, no late decelerations present and no variable decelerations Results & Data ([facility]) Vital Signs (Past 12 Hours) Vital Signs Pulse BP 07/28/21 06:54 89 139/87 Coding Level of Care Code None Diagnoses Group beta Strep positive B95.1 Supervision of normal intrauterine in multigravida Z34.80 Beta thalassemia trait D56.3
--- NOTE | 2021-07-28 10:03 | Anesthesia Procedure Note ---
Date of Service July 28, 2021 Anesthesia Post Epidural Note Vital Signs Vital Signs: Pulse Resp BP Pulse Ox 57 L 20 107/68 98 07/28/21 10:00 07/28/21 08:45 07/28/21 10:00 07/28/21 08:37 Notes Mental Status: alert / awake / arousable and participated in evaluation Nausea / Vomiting: adequately controlled Pain: adequately controlled Airway Patency, RR, SpO2: stable & adequate BP & HR: stable & adequate Hydration State: stable & adequate Neuraxial Anesthesia: was administered and sensory block is resolving Anesthetic Complications: no major complications apparent and Pt Satisfied with anesthetic care Epidural: Removed without complications and With tip intact
[2021-07-28] MEDS ORDERED: PENICILLIN G POTASSIUM 3 MU in DEXTROSE 5% 100 ML IV PRN (10:06)
[2021-07-28] MEDS ORDERED: IBUPROFEN 600 MG TAB PO ONE (10:50)
[2021-07-28] MEDS ORDERED: BENZOCAINE 20% AER SPR 82.5 GM CAN EXT PRN (13:23)
[2021-07-28] MEDS ORDERED: ACETAMINOPHEN 325 MG TAB PO PRN (13:23)
[2021-07-28] MEDS ORDERED: oxyCODONE/ACETAMINOPHEN 5mg/325mg TAB PO PRN (13:23)
[2021-07-28] MEDS ORDERED: DIPHTHERIA/TETANUS/PERTUSSIS 0.5 ML SYR/VIAL IM ONE (13:23)
[2021-07-28] MEDS ORDERED: HYDROCORTISONE ACETATE 25 MG SUPP PR PRN (13:23)
[2021-07-28] MEDS: IBUPROFEN 600 MG TAB PO PRN ×2 (17:13→21:00)
[2021-07-28] MEDS: DOCUSATE SODIUM 100 MG CAP PO SCH (21:04)
[2021-07-29] MEDS: IBUPROFEN 600 MG TAB PO PRN ×3 (01:18→09:10)
[2021-07-29 06:25] LABS: Hematocrit (blood only) 26.9 % (37-47); Hemoglobin 8.3 g/dL (12.0-16.0); Mean Corpuscular Hemoglobin 20.5 pg (25-34); Mean Corpuscular Hgb Conc 30.9 g/dL (32-36); Mean Corpuscular Volume 66.6 fL (80-100); Mean Platelet Volume 10.2 fL (7.4-10.4); Platelet Count 290 K/uL (130-400); RDW Coefficient of Variation 16.3 % (11.5-14.5); RDW Standard Deviation 39.1 fL (36.4-46.3); Red Blood Count 4.04 M/uL (4.2-5.4); White Blood Count 14.41 K/uL (4.8-10.8)
--- NOTE | 2021-07-29 07:24 | Obstetrical Progress Note ---
Date of Service July 29, 2021 Assessment & Plan (1) Encounter for pre-operative examination: day #1 the patient is doing well ambulating well no extremity pain minimal bleeding she wishes to go home at 23 hours this sounds reasonable Subjective Ambulation: ambulating normally Voiding: no voiding problems Passing Gas:: Yes Diet Tolerance:: regular diet Lochia:: Small Results & Data ([facility]) Vital Signs (Past 12 Hours) Vital Signs Temp Pulse Resp BP Pulse Ox 07/29/21 03:29 97.9 F 62 18 127/82 100 07/28/21 23:45 97.7 F 74 16 114/73 99
[2021-07-29] MEDS ORDERED: PRENATAL VITAMIN 1 TAB PO SCH (08:00)
[2021-07-29] MEDS: DOCUSATE SODIUM 100 MG CAP PO SCH (08:22)
--- NOTE | 2021-08-01 12:46 | Delivery Summary ---
DATE OF SERVICE: 07/28/2021 PROCEDURE: Normal spontaneous vaginal delivery. SURGEON: Perry Fuentes MD. PREOPERATIVE DIAGNOSES: 1. Single intrauterine at 38 weeks 2 days gestational age. 2. Spontaneous labor. 3. Group B Streptococcus positive. 4. Beta thalassemia trait. POSTOPERATIVE DIAGNOSES: 1. Single intrauterine at 38 weeks 2 days gestational age. 2. Spontaneous labor. 3. Group B Streptococcus positive. 4. Beta thalassemia trait. 5. Status post delivery. ESTIMATED BLOOD LOSS: 300 mL. DRAINS: None. FLUIDS: Continuous lactated Ringer. URINE OUTPUT: Not measured. COMPLICATIONS: None. FINDINGS: Viable male with weight of 8 pounds 3.3 ounces and Apgars of 8 and 9 at one and fiv e minutes respectively. HOSPITAL COURSE: The patient was admitted in active labor at 6-7 cm dilated. The patient progressed quickly in labor to complete-complete, +2 station with a strong urge to push. The patient underwent artificial rupture of membranes to aid in delivery. Then, the patient pushed approximately over 10 minutes to achieve delivery. The patient did receive an epidural for anesthesia, although it only garcia d minimal effect. DESCRIPTION OF PROCEDURE: The patient progressed to 10 cm dilated, 100% effaced, positive 2 station, pushed over intact perineum with epidural anesthesia and delivered a viable male , weight and Apgars as noted above. Head of the delivered in JANETTE position, restituted to left transverse. Nuchal cord x2 was noted, which was easily reduced. Body and shoulders quickly followed. was noted to be vigorous soon after delivery and a 1 minute delayed cord clamping was initiated. Cor d was then double clamped and cut. remained on maternal abdomen. Cord blood was obtained. Attention was then turned to delivery of the placenta, which was delivered with 3-vessel cord, gentle cord traction. On inspection of perineum, vagina and cervix, there was noted to be no lacerations. Sponge and instrument counts were correct at the completion of the case. Both mother and we re stable in the immediate post-delivery period. Job ID: [id number]
== END 2021-07-29 14:05 | disposition home or self-care (01) | DRG 807 ==
LOC: OPB 06:44 → 4S1 06:48 → 4E2 12:00